=== PATIENT | female | born 1995 | race Caucasian/White ===

== ENCOUNTER 2023-09-22 17:38 | Outpatient (REF) | payer MEDICAID, SELFPAY ==
[2023-09-23 16:08] LABS: C. trachomatis RNA TMA NOT DETECTED (NOT DETECTED); N. gonorrhoeae RNA TMA NOT DETECTED (NOT DETECTED)
== END 2023-09-22 17:39 | disposition home or self-care (01) ==
LOC: HO.HHCLNP 17:38
PROVIDERS: Visit Provider Nurse Practitioner
DX: A64 Unspecified sexually transmitted disease (principal)
CPT/HCPCS: 36415; 87491; 87591

== ENCOUNTER 2023-09-24 09:21 | Outpatient (REF) | payer MEDICAID, SELFPAY ==
[2023-09-24 14:45] LABS: MANUAL DIFF FLAG NO
[2023-09-24 14:47] LABS: Basophils Absolute Auto 0.1 X10*3/uL (0.0-0.2); Basophils Percent Auto 0.5 % (0-2); Eosinophils Absolute Auto 0.1 X10*3/uL (0.0-0.4); Eosinophils Percent Auto 0.7 % (0-4); Hematocrit 36.4 % (37.0-47.0); Hemoglobin 11.5 g/dl (12.0-16.0); Imm Gran Abs Auto 0.04 X10*3/uL (0.00-0.03); Imm Gran Pct Auto 0.3 % (0.0-0.4); Lymphocytes Absolute Auto 1.4 X10*3/uL (1.2-4.9); Lymphocytes Percent Auto 10.3 % (20-40); Mean Corpuscular HGB Conc 31.6 g/dl (31.0-35.0); Mean Corpuscular Hemoglobin 23.9 pg (27.0-33.0); Mean Corpuscular Volume 75.5 fL (80.0-98.0); Mean Platelet Volume 9.6 fL (9.4-12.3); Monocytes Absolute Auto 0.8 X10*3/uL (0.1-1.2); Neutrophils Absolute Auto 10.8 x10*3/uL (2.0-8.3); Neutrophils Percent Auto 82.2 % (45-73); Platelet Count 299 X10*3/uL (160-400); Red Blood Count 4.82 X10*6/uL (4.20-5.50); Red Cell Distribution Width 16.5 % (11.0-16.0); White Blood Count 13.1 X10*3/uL (4.8-10.8)
[2023-09-24 14:54] LABS: Estimated Average Glucose 105 mg/dL; Hemoglobin A1c % 5.3 % (<6.0)
[2023-09-24 15:06] LABS: Alanine Aminotransferase 16 U/L (0-31); Alkaline Phosphatase 43 U/L (39-117); Anion Gap 8 (12-20); Aspartate Amino Transferase 22 U/L (5-31); Bilirubin Total 0.4 mg/dL (0.0-1.0); Blood Urea Nitrogen 13 mg/dL (9-16); Calcium 8.8 mg/dL (8.4-10.2); Carbon Dioxide 24 mmol/L (22-29); Chloride 108 mmol/L (96-108); Cholesterol 138 mg/dL (<200); Estimated Glomerular Filt Rate > 60; Glucose Random 81 mg/dL (60-115); HDL Cholesterol 58 mg/dL (>40); LDL Cholesterol Calculated 68 mg/dL (<100); Potassium 4.1 mmol/L (3.3-5.1); Sodium 136 mmol/L (135-145); Total Protein 7.2 g/dL (6.5-8.0); Triglycerides 60 mg/dL (<150)
[2023-09-24 16:04] LABS: CT PCR NOT DETECTED (Not Detect.); NG PCR NOT DETECTED (Not Detect.)
[2023-09-27 08:34] LABS: HBS Num1 94.72 mIU/mL (0-7.99); HBc Num1 0.07 S/CO (0.00-0.79); HBsAGNum1 0.31 S/CO (0.00-0.99); HIV AB/AG Nonreactive (Nonreactive); HIV Num 1 0.11 S/CO (0.00-0.99); Hepatitis B Core Antibody Nonreactive (Nonreactive); Hepatitis B Surface Antigen Negative (Negative); ~HepC Num1 0.09 S/CO (0.00-0.79); ~Hepatitis B Surface Antibody REACTIVE (Nonreactive); ~Hepatitis C Antibody Nonreactive (Nonreactive)
[2023-09-27 11:13] LABS: RPR Rapid Plasma Reagin NON-REACTIVE (NON-REACTIVE)
== END 2023-09-24 09:22 | disposition home or self-care (01) ==
LOC: HO.CHCLDS 09:21
PROVIDERS: Visit Provider Nurse Practitioner
DX: Z11.4 Encounter for screening for human immunodeficiency virus [HIV] (principal); A64 Unspecified sexually transmitted disease; E66.09 Other obesity due to excess calories; Z68.30 Body mass index [BMI] 30.0-30.9, adult; N93.9 Abnormal uterine and vaginal bleeding, unspecified; I10 Essential (primary) hypertension; Z20.2 Contact with and (suspected) exposure to infections with a predominantly sexual mode of transmission
CPT/HCPCS: 0353U; 80053; 80061; 83036; 85025; 86592; 86704; 86706; 86803; 87340; 87389

== ENCOUNTER 2023-12-10 16:17 | Outpatient (REF) | payer MEDICAID, SELFPAY ==
[2023-12-10 17:48] LABS: MANUAL DIFF FLAG NO
[2023-12-10 17:52] LABS: Basophils Absolute Auto 0.1 X10*3/uL (0.0-0.2); Basophils Percent Auto 1.1 % (0-2); Eosinophils Absolute Auto 0.1 X10*3/uL (0.0-0.4); Eosinophils Percent Auto 1.4 % (0-4); Hemoglobin 11.4 g/dl (12.0-16.0); Imm Gran Abs Auto 0.03 X10*3/uL (0.00-0.03); Imm Gran Pct Auto 0.3 % (0.0-0.4); Lymphocytes Absolute Auto 2.3 X10*3/uL (1.2-4.9); Lymphocytes Percent Auto 26.6 % (20-40); Mean Corpuscular HGB Conc 31.7 g/dl (31.0-35.0); Mean Corpuscular Hemoglobin 23.7 pg (27.0-33.0); Mean Corpuscular Volume 74.8 fL (80.0-98.0); Mean Platelet Volume 9.5 fL (9.4-12.3); Monocytes Absolute Auto 0.6 X10*3/uL (0.1-1.2); Monocytes Percent Auto 7.1 % (2-11); Neutrophils Absolute Auto 5.6 x10*3/uL (2.0-8.3); Neutrophils Percent Auto 63.5 % (45-73); Platelet Count 370 X10*3/uL (160-400); Red Blood Count 4.81 X10*6/uL (4.20-5.50); Red Cell Distribution Width 16.8 % (11.0-16.0); White Blood Count 8.8 X10*3/uL (4.8-10.8)
[2023-12-10 20:39] LABS: Thyroid Stimulating Hormone 1.14 uIU/mL (0.32-4.0)
== END 2023-12-10 16:18 | disposition home or self-care (01) ==
LOC: HO.HHCL 16:17
PROVIDERS: Visit Provider Nurse Practitioner Family
DX: N92.0 Excessive and frequent menstruation with regular cycle (principal)
CPT/HCPCS: 36415; 84443; 85025

== ENCOUNTER 2024-02-08 12:30 | Outpatient (REF) | payer MEDICAID, SELFPAY ==
[2024-02-10 22:09] LABS: TS Negative Control Passed; TS Panel A 1; TS Panel B 1; TS Positive Control Passed; TSpotTB Negative (Negative)
== END 2024-02-08 12:31 | disposition home or self-care (01) ==
LOC: HO.HHCL 12:30
PROVIDERS: Visit Provider Nurse Practitioner
DX: Z13.89 Encounter for screening for other disorder (principal)
CPT/HCPCS: 36415; 86481

== ENCOUNTER 2025-03-20 10:43 | Outpatient (REF) | payer MEDICAID, SELFPAY ==
--- OUTSIDE RECORDS SUMMARY | 2025-03-19 10:30 | XMS_ITS | Encounter Summary ---
Author Organization [employer] Address [address] [place] [address] 7 [place] [address] Care Team Providers Care Community Engagement Manager Name Role Phone Karen Huerta NP Primary Care Provider [phone] Reason for Referral * Consultation (Routine) - Authorized Specialty Diagnoses / Procedures Referred By Larisa enamorado Referred To Contact Orthopaedic Surgery Diagnoses Bilateral carpal tunnel syndrome Danuta Torres NP [address] [place] [address] Phone: tel: fax: [facility] [address] [place] [address] Phone: tel: Referral ID Status Reason Start Date Expiration Date Visits Requested Visits Authorized [id number] Authorized Specialty Services Required 03/20/2025 03/20/2026 6 6 Reason for Visit * Reason Comments sick visit Encounter Details Date Type Department Care Team (Late st Contact Info) Description 03/19/2025 10:30 AM EDT Office Visit [facility] [address] [place] [address] Danuta Torres NP [address] [place] [address] Bilateral carpal tunnel syndrome (Primary Dx); Pain in both knees, unspecified chronicity; Status post delivery; Pharyngitis, unspecified etiology Social History Tobacco Use Types Packs/Day Years Used Date Smoking Tobacco: Never Passive Smoke Exposure: Never Smokeless Tobacco: Never Tobacco Cessation:Counseling Given: Not Answered Alcohol Use Standard Drinks/Week Comments Never 0 (1 standard drink = 0.6 oz pur e alcohol) Alcohol Answer Date Recorded How often do you have a drink containing alcohol ? 0 12/09/2023 Average Number of Drinks Not on file 024 How often do you have six or more drinks on one occasion? 0 12/09/2023 Depression Answer Date Recorded Patient Health Questionnaire-9 Score 0 08/28/2024 Patient Health Questionnaire-9 Score 0 08/28/2024 Last PHQ-9: Questionnaire Data Not on file 0 08/28/2024 Housing Stability Answer Date Recorded What is your housing situation today? I have carolyne vasques 08/28/[address] you li ve. Do you have problems with any of the following? None of the above 08/28/2024 Food Insecurity Answer Date Recorded Within the past 12 months, y ou worried that your food would run out before you got money to buy more: Never True 09/22/2023 Within the past 12 months,th e food you bought just didn't last and you didn't have enough money to get more: Never True Transportation Answer Date Recorded In the past 12 months, has l ack of transportation kept you from medical appts, meetings, work or from getting things needed for daily living? No 09/22/2023 Utilities Answer Date Recorded In the past 12 months, has t he electric, gas, oil or water company threatened to shut off services in your home? No 09/22/2023 Depression Answer Date Recorded Patient Health Questionnaire-2 Score 0 08/28/2024 Internet Access Answer Date Recorded Internet Access Q1 No 08/28/2024 Internet Access Q2 I do not want or need it 08/2024 Comments Yes Sex and Gender Information Value Date Recorded Sex Assigned at Female 07/26/2023 2:35 PM EST Legal Sex Female 2:34 PM EDT Gender Identity Female 07/26/2023 2:35 PM EST Sexual Orientation Straight 07/26/2023 2: 35 PM EST documented as of this encounter Last Filed Vital Signs Vital Sign Reading Time Taken Comments Blood Pressure 122/80 03/19/2025 10:51 AM EDT Pulse 60 03/19/2025 10:51 AM EDT Temperature 36.3 C (97.4 F) 03/19/2025 10:51 AM EDT Respiratory Rate 15 03/19/2025 10:51 AM EDT Oxygen Saturation 99% 03/19/2025 10:51 AM EDT Inhaled Oxygen Concentration - - Weight 97 kg (213 lb 12.8 oz) 03/19/2025 10:51 A M EDT Height 175.3 cm (5' 9 ) 03/19/2025 10:51 AM EDT Body Mass Index 31.57 03/19/2025 10:51 AM EDT documented in this encounter Progress Notes * Danuta Torres NP - 03/19/2025 10:30 AM EDT Shelby Fletcher is a 29 y.o. female who presents to the office for Chief Complaint Patient presents with sick visit Problem List[1] Medical History[2] Allergies[3] Shelby Fletcher, 29-year-old female - Wrist pain started approximately one month prior to the visit - Initial symptoms began in the wrist area, progressing to pain in the rest of the hand and fingers - Numbness, tingling, and itching in both hands, with episodes of cold sensation and perceived poorcirculation - Symptoms worse in the morning upon waking, with difficulty opening hands - Used wrist braces as previously recommended, but no relief; braces made it harder to open hands - Reports swelling after section, with recurrence of swelling postoperatively - Knee pain reported - Denies cough, wheezing, shortness of breath, and fever - Reports redness in throat in the morning, but denies morning phlegm or postnasal drip - Mood reported as happy Review of Systems Constitutional: Negative for activity change and appetite change. Respiratory: Negative for apnea and chest tightness. Genitourinary: Negative for difficulty urinating and dyspareunia. Musculoskeletal: Positive for joint swelling and myalgias. BP 122/80 (BP Location: Left arm, Patient Position: Sitting, BP Cuff Size: Large adult) Pulse 60 Temp 97.4 ??F (36.3 ??C) (Oral) Resp 15 Ht 5' 9 (1.753 m) Wt 213 lb 12.8 oz (97 kg) SpO2 99% BMI 31.57 kg/m?? Physical Exam Vitals reviewed. Constitutional: Appearance: She is obese. HENT: Head: Normocephalic and atraumatic. Nose: Nose normal. Eyes: Conjunctiva/sclera: Conjunctivae normal. Cardiovascular: Rate and Rhythm: Normal rate and regular rhythm. Pulmonary: Effort: Pulmonary effort is normal. Breath sounds: Normal breath sounds. Musculoskeletal: Right wrist: Swelling present. No bony tenderness. Decreased range of motion. Left wrist: Swelling present. No bony tenderness. Decreased range of motion. Cervical back: Normal range of motion and neck supple. Comments: + tinnel + phalen Neurological: General: No focal deficit present. Mental Status: She is alert. - HEENT: Mild erythema observed in the throat. Results: Office Visit on 03/19/2025 Component Date Value Ref Range Status Rapid Strep A Screen 03/19/2025 Negative Negative, None Detected Final QC Media Lot # 03/19/2025 [id number] Final Lot# Expiration Date 03/19/2025 1,134,026 Final Assessment & Plan Bilateral carpal tunnel syndrome Orders: Referral to Orthopaedic Surgery; Future Pain in both knees, unspecified chronicity Status post delivery Orders: CBC auto differential; Future Sed Rate by Modified Westergren; Future C-reactive Protein; Future Pharyngitis, unspecified etiology Orders: POCT Rapid Strep A COTTO ID NOW Assessment & Plan Bilateral carpal tunnel syndrome: - Nerve pain and wrist inflammation consistent with carpal tunnel syndrome, likely related to and repetitive motions. Nerve compression at the level of the wrist. - Referred to orthopedist/hand specialist for further evaluation and management, including consideration of custom splinting or corticosteroid injection. Recommended wrist stretching exercises and limiting phone use. Advised to wear wrist braces at night and remove during the day for stretching. Status post delivery: - symptoms within expected range following section. No signs of excessive bleeding or infection at present. Anemia expected post-delivery and surgery. - Ordered blood count and inflammation markers to assess for infection or excessive blood loss. Advised to contact surgical team regarding postoperative symptoms. Instructed to seek care if abdominalpain worsens or signs of infection develop before follow-up. Pharyngitis, unspecified etiology: - Pharyngeal erythema without evidence of infection or strep throat on examination. Afebrile. - Performed throat swab for strep testing. Advised to use acetaminophen as needed and increase fluid intake. Instructed to wait for test results; antibiotics to be prescribed if strep test is positive. Prescription - Tylenol, as needed Appointments - Referral to orthopedist/hand specialist for evaluation of wrist symptoms Current Medications[4] Based on our discussion, I have outlined the following instructions for you: - Do wrist stretching exercises and try to use your phone less often. - Wear wrist braces while you sleep at night, and take them off during the day so you can do your wrist stretches. - You will have blood tests to check for infection or blood loss. - If you have any new or concerning symptoms after your surgery, contact your surgical team. - If your belly pain gets worse or you notice signs of infection (like fever, redness, swelling, orpus), get medical help right away. - A throat swab was done to check for strep throat. - You can take acetaminophen if you need it for pain, and make sure to drink plenty of fluids. - Wait for your throat test results. If the test shows strep throat, you will be given antibiotics. Next appointment(s): - Referral to orthopedist/hand specialist for evaluation of wrist symptoms Thank you again for your visit, and we look forward to supporting you in your journey to better health. This note was drafted using Ambient (AI) technology. The patient/patient's guardian has been informed and has consented to the use of this technology: Yes Visit Conducted in: Hungarian Translation by: Provided by [employer] Benefits Administrator Phone Service ID # [id number] [1] Patient Active Problem List Diagnosis Routine adult health maintenance Abnormal uterine bleeding (AUB) Class 1 obesity due to excess calories without serious comorbidity with body mass index (BMI) of 30.0 to 30.9 in adult STI (sexually transmitted infection) Menorrhagia with regular cycle Dysmenorrhea Viral upper respiratory tract infection Sore throat Less than 8 weeks gestation of Bilateral carpal tunnel syndrome Pain in both knees Status post delivery Pharyngitis [2] History reviewed. No pertinent past medical history. [3] No Known Allergies [4] Current Outpatient Medications: fluticasone (Flonase) 50 MCG/ACT nasal spray, Administer 1-2 sprays into each nostril Once per day.Shake gently. Before first use, prime pump. After use, clean tip and replace cap., Disp: 16 g, Rfl:2 documented in this encounter Miscellaneous Notes * Assessment & Plan Note - Danuta Torres NP - 03/19/2025 10:30 AM EDTAssociated Problem(s): Bilateral carpal tunnel syndrome Orders: Referral to Orthopaedic Surgery; Future * Assessment & Plan Note - Danuta Torres NP - 03/19/2025 10:30 AM EDTAssociated Problem(s): Pain in both knees * Assessment & Plan Note - Danuta Torres NP - 03/19/2025 10:30 AM EDTAssociated Problem(s): Status post delivery Orders: CBC auto differential; Future Sed Rate by Modified Westergren; Future C-reactive Protein; Future * Assessment & Plan Note - Danuta Torres NP - 03/19/2025 10:30 AM EDTAssociated Problem(s): Pharyngitis Orders: POCT Rapid Strep A COTTO ID NOW documented in this encounter Plan of Treatment Scheduled Orders Name Type Priority Associated Diagnoses Orde r Schedule C-reactive Protein Lab Routine Status post delivery Expected: 03/19/2025 (Approximate), Expires: 03/19/2026 Scheduled Referrals Name Type Priority Associated Diagnoses Order Schedule Referral to Orthopaedic Surgery Outpatient Referral Routine Bilateral carpal tunnel syndrome Expected: 03/19/2025 (Approximate), Expires: 03/19/2026 documented as of this encounter Procedures Procedure Name Priority Date/Time Associated Diagnosis Comments CBC WITH AUTO DIFFERENTIAL Routine 03/20/2025 11:14 AM EDT Status post delivery SED RATE BY MODIFIED WESTERGREN Routine 03/20/2025 11:14 AM EDT Status post delivery POC COTTO ID NOW STREP A Routine 03/19/2025 11:50 AM EDT Pharyngitis, unspecified etiology documented in this encounter Results * Sed Rate by Modified Westergren (03/20/2025 11:14 AM EDT) Erythrocyte Sedimentation Rate 13 0 - 20 MM/HR [facility] Comment:Patients with polycy themia and many hemoglobin abnormalitiesmay have depressed sed rates whereas patients with anemiamay have elevated sed rates. Blood Venous blood specimen / Unknown 03/20/2025 11:14 AM EDT 03/20/2025 11:14 AM EDT us Danuta Torres NP LAB BLOOD ORDERABLES Final Resul t [facility] [address] [place] [phone] * (ABNORMAL) CBC auto differential (03/20/2025 11:14 AM EDT) White Blood Count 6.9 4.8 - 10.8 X10*3/uL [facility] Red Blood Count 5.16 4.20 - 5.50 X10*6/uL [facility] Hemoglobin 13.2 12.0 - 16.0 g/dl [facility] Hematocrit 41.2 37.0 - 47.0 % [facility] Mean Corpuscular Volume 79.8(L) 80.0 - 98.0 fL [facility] Mean Corpuscular Hemoglobin 25.6(L) 27.0 - 33.0 pg [facility] Mean Corpuscular HGB Conc 32.0 31.0 - 35.0 g/dl [facility] Red Cell Distribution Width TNP 11.0 - 16.0 % [facility] Platelet Count 381 160 - 400 X10*3/uL [facility] Mean Platelet Volume 8.8(L) 9.4 - 12.3 fL [facility] Neutrophils Percent Auto 71.7 45 - 73 % [facility] Imm Gran Pct Auto 0.3 0.0 - 0.4 % [facility] Lymphocytes Percent Auto 19.5(L) 20 - 40 % [facility] Monocytes Percent Auto 4.9 2 - 11 % [facility] Eosinophils Percent Auto 2.6 0 - 4 % [facility] Basophils Percent Auto 1.0 0 - 2 % [facility] NRBC Pct Auto 0.0 0.0 - 0.2 /100WBC [facility] Neutrophils Absolute Auto 5.0 2.0 - 8.3 x10*3/uL [facility] Imm Gran Abs Auto 0.02 0.00 - 0.03 X10*3/uL [facility] Lymphocytes Absolute Auto 1.4 1.2 - 4.9 X10*3/uL [facility] Monocytes Absolute Auto 0.3 0.1 - 1.2 X10*3/uL [facility] Eosinophils Absolute Auto 0.2 0.0 - 0.4 X10*3/uL [facility] Basophils Absolute Auto 0.1 0.0 - 0.2 X10*3/uL [facility] NRBC Abs Auto 0.000 0.0 - 0.012 X10*3/uL [facility] Blood Venous blood specimen / Unknown 03/20/2025 11:14 AM EDT 03/20/2025 11:14 AM EDT us Danuta Torres TESTER/LIFT TRUCKER LAB BLOOD ORDERABLES Final Resul t [facility] [address] [place] [address] [phone] * POCT Rapid Strep A COTTO ID NOW (03/19/2025 11:50 AM EDT) Rapid Strep A Screen Negative Negative, None Detected QC Media Lot # [id number] Lot# Expiration Date [id number] Swab 03/19/2025 11:5 0 AM EDT Result [facility] Danuta Torres NP POINT OF CARE TEST ENTER/EDIT OR DERABLES Final Result documented in this encounter Visit Diagnoses Diagnosis Bilateral carpal tunnel syndrome- Primary Carpal tunnel syndrome Pain in both knees, unspecified chronicity Status post delivery delivery, without mention of indication, unspecified as to episode of care Pharyngitis, unspecified etiology documented in this encounter Additional Health Concerns Assessment Noted Time PHQ-9 Depression Total Score: 0 08/29/19 25 10:20 AM EST documented as of this encounter Care Teams Community Engagement Manager Relationship Specialty Start Date End Date Karen Huerta NP [address] [place] [id number] PCP - General Family Medicine 09/22/23 documented as of this encounter
[2025-03-20 11:16] LABS: MANUAL DIFF FLAG NO
[2025-03-20 11:46] LABS: Hematocrit 41.2 % (37.0-47.0); Hemoglobin 13.2 g/dl (12.0-16.0); Imm Gran Abs Auto 0.02 X10*3/uL (0.00-0.03); Imm Gran Pct Auto 0.3 % (0.0-0.4); Lymphocytes Absolute Auto 1.4 X10*3/uL (1.2-4.9); Mean Corpuscular HGB Conc 32.0 g/dl (31.0-35.0); Mean Corpuscular Hemoglobin 25.6 pg (27.0-33.0); Mean Corpuscular Volume 79.8 fL (80.0-98.0); NRBC Abs Auto 0.000 X10*3/uL (0.0-0.012); NRBC Pct Auto 0.0 /100WBC (0.0-0.2); Platelet Count 381 X10*3/uL (160-400); Red Blood Count 5.16 X10*6/uL (4.20-5.50); White Blood Count 6.9 X10*3/uL (4.8-10.8)
--- OUTSIDE RECORDS SUMMARY | 2025-03-20 13:13 | XMS_ITS | Clinical Summary ---
Author Organization [facility] Address [address] [place] [address] Care Team Providers Care Elementary Special Education Teacher Name Role Phone Unavailable Primary Care Provider Unavailabl e Social History Tobacco Use Types Packs/Day Years Used Date Smoking Tobacco: Never Assessed Comments Unknown Sex and Gender Information Value Date Recorded Sex Assigned at Not on file Legal Sex Female 4:36 AM EST Gender Identity Not on file Sexual Orientation Not on file Plan of Treatment Health Maintenance Due Date Last Done Comments DTaP,Tdap,and Td Vaccines (1 - Tdap) 2015 Hepatitis B Vaccines (1 of 3 - 19+ 3-dose series) 2015 Cervical Cancer Screening: P ap Smear 2017 Depression Screening 06/28/2024 COVID-19 Vaccine (1 - 2023-2 5 season) 2025 Influenza Vaccine (#1) 2025 RSV Immunization Adult Patie nts (1 - 1-dose 75+ series) 2071 HIB Vaccines Aged Out No longer eligi ble based on patient's age to complete this topic HPV Vaccines Aged Out No longer eligi ble based on patient's age to complete this topic Hepatitis A Vaccines Aged Out No long er eligible based on patient's age to complete this topic IPV Vaccines Aged Out No longer eligi ble based on patient's age to complete this topic MMR Vaccines Aged Out No longer eligi ble based on patient's age to complete this topic Meningococcal ACWY Vaccine Aged Out N o longer eligible based on patient's age to complete this topic Meningococcal B Vaccine Aged Out No l onger eligible based on patient's age to complete this topic Pneumococcal Vaccine: Pediat rics (0 to 5 Years) and At-Risk Patients (6 to 49 Years) Aged Out No longer eligible b ased on patient's age to complete this topic RSV Immunization Patients Un jeferson 20 months Aged Out No longer eligible b ased on patient's age to complete this topic Varicella Vaccines Aged Out No longer eligible based on patient's age to complete this topic
--- OUTSIDE RECORDS SUMMARY | 2025-03-20 13:13 | XMS_ITS | Encounter Summary ---
Author Organization [employer] Address [address] [place] [address] [address] [place] [address] Care Team Providers Care Automotive Mechanic Name Role Phone Karen Huerta NP Primary Care Provider [phone] Reason for Visit * Reason Onset Date Comments Chart Prep 03/16/2025 Encounter Details Date Type Department Care Team ([facility] st Contact Info) Description 03/16/2025 Telephone [facility] [address] [place] [address] Danuta Torres NP [address] [place] [address] Chart Prep Social History Tobacco Use Types Packs/Day Years Used Date Smoking Tobacco: Never Passive Smoke Exposure: Never Smokeless Tobacco: Never Alcohol Use Standard Drinks/Week Comments Never 0 [...] PM EST documented as of this encounter Miscellaneous Notes * Telephone Encounter - Ellen Hebert MA - 03/16/2025 10:52 AM EDT Chart Prep Labs: done Images: not applicable Referrals: not applicable Vaccines due: Covid, Flu, and HPV Screenings: not applicable Overdue care gaps: Oral health screening and Tobacco documented in this encounter Plan of Treatment Not on file documented as of this encounter Visit Diagnoses Not on filedocumented in this encounter Additional Health Concerns Assessment Noted Time PHQ-9 Depression Total Score: 0 08/29/19 25 10:20 AM EST documented as of this encounter Care Teams Automotive Mechanic Relationship Specialty Start Date End Date Karen Huerta NP [address] [place] [address] PCP - General Family Medicine 09/22/23 documented as of this encounter
--- OUTSIDE RECORDS SUMMARY | 2025-03-20 13:13 | XMS_ITS | Encounter Summary ---
Author Organization [employer] Address [address] [facility] [address] [place] [address] Care Team Providers Care Fitter Mechanic Name Role Phone Karen Huerta JOB Primary Care Provider [phone] Encounter Details Date Type Department Care Team ([facility] st Contact Info) Description 10/06/2024 Orders Only [facility] [address] [place] [address] Provider, MD Yaneth Social History Tobacco Use Types Packs/Day Years [...] PM EST documented as of this encounter Plan of Treatment Not on file documented as of this encounter Procedures Procedure Name Priority Date/Time Associated Diagnosis Comments HM PAP/HPV Routine 09/28/2024 10:11 AM EDT documented in this encounter Results * HM PAP/HPV (09/28/2024 10:11 AM EDT) us Historical Provider HEALTH MAINTENANCE Final Result documented in this encounter Visit Diagnoses Not on filedocumented in this encounter Additional Health Concerns Assessment Noted Time PHQ-9 Depression Total Score: 0 08/29/19 25 10:20 AM EST documented as of this encounter Care Teams Fitter Mechanic Relationship Specialty Start Date End Date Karen Huerta NP [address] [place] [id number] PCP - General Family Medicine 09/22/23 documented as of this encounter
--- OUTSIDE RECORDS SUMMARY | 2025-03-20 13:13 | XMS_ITS | Encounter Summary ---
Author Organization [employer] Address [address] [facility] 7[address] [place] [address] Care Team Providers Care Biomedical Engineer Name Role Phone Karen Huerta NP Primary Care Provider [phone] Reason for Visit * Reason Onset Date Comments Appointment Request 11/17/2023 Encounter Details Date Type Department Care Team ([facility] Contact Info) Description 11/17/2023 Telephone [facility] [address] [place], [place] [phone] Karen Huerta NP [address] [place] [address] Appointment Request Social History Tobacco Use Types Packs/Day Years Used Date Smoking Tobacco: Never Smokeless Tobacco: Never Alcohol Use Standard Drinks/Week Comments Never 0 (1 standard drink = 0.6 oz pur e alcohol) Depression Answer Date Recorded Patient Health Questionnaire-9 Score 0 09/22/2023 Patient Health Questionnaire-9 Score 0 09/22/2023 Last PHQ-9: Questionnaire Data Not on file 0 09/22/2023 Housing Stability Answer Date Recorded What is your housing situation today? I have carolyne vasques 09/22/[address] you li ve. Do you have problems with any of the following? I am not sure;None of the above 09/22/2023 Food Insecurity Answer Date Recorded Within the [...] Date Recorded Patient Health Questionnaire-2 Score 0 09/22/2023 Comments Unknown Sex and Gender Information Value Date Recorded Sex Assigned at Female 07/26/2023 2:35 PM EST Legal Sex Female 2:34 PM EDT Gender Identity Female 07/26/2023 2:35 PM EST Sexual Orientation Straight 07/26/2023 2: 35 PM EST documented as of this encounter Miscellaneous Notes * Telephone Encounter - Ron Barrett - 11/17/2023 2:31 PM EDT Tc from patient calling to reschedule follow-up appt from 10/26 documented in this encounter Plan of Treatment Not on file documented as of this encounter Visit Diagnoses Not on filedocumented in this encounter Additional Health Concerns Assessment Noted Time PHQ-9 Depression Total Score: 0 09/22/19 2:30 PM EDT documented as of this encounter Care Teams Biomedical Engineer Relationship Specialty Start Date End Date Karen Huerta NP [address] [place] [id number] PCP - General Family Medicine 09/22/23 documented as of this encounter
--- OUTSIDE RECORDS SUMMARY | 2025-03-20 13:14 | XMS_ITS | Clinical Summary ---
Author Organization [employer] Address [address] [place] [address] [address] [place] [address] Care Team Providers Care Environmental Services Specialist Name Role Phone Karen Huerta JOB Primary Care Provider [phone] Allergies No known active allergies Medications fluticasone (Flonase) 50 MCG/ACT nasal sprayIndications :Viral upper respiratory tract infection Administer 1-2 sprays into each nostril Once per day. Shake gently. Before first use, prime pump. After use, clean tip and replace cap. 16 g 2 5 08/29/19 26 Active Active Problems Problem Noted Date Diagnosed Date Bilateral carpal tunnel syndrome 03/19/2025 Assessment & Plan (03/19/2025 12:52 PM EDT): Orders: Referral to Orthopaedic Surgery; Future Pain in both knees 03/19/2025 Assessment & Plan (03/19/2025 12:52 PM EDT): Status post delivery 03/19/2025 Assessment & Plan (03/19/2025 12:52 PM EDT): Orders: CBC auto differential; Future Sed Rate by Modified Westergren; Future C-reactive Protein; Future Pharyngitis 03/19/2025 Assessment & Plan (03/19/2025 12:52 PM EDT): Orders: POCT Rapid Strep A COTTO ID NOW Viral upper respiratory tract infection 08/29/19 25 Sore throat 08/28/2024 Less than 8 weeks gestation of 025 Menorrhagia with regular cycle 12/10/2023 Assessment & Plan (12/17/2023 9:15 AM EDT): Cbc ordered Trial ibuprofen during menses Increase iron rich foods monitor Dysmenorrhea 12/10/2023 Routine adult health maintenance 12/09/2023 Assessment & Plan (12/09/2023 10:30 PM EDT): -age appropriate screening and immunizations up to date (STI screening) -low cardiovascular risk -mental health screening negative -healthy social behaviors encouraged -anticipatory guidance reviewed: diet, exercise Abnormal uterine bleeding (AUB) 12/09/2023 Assessment & Plan (12/09/2023 10:26 PM EDT): -labs ordered to assess for resulting anemia today -will discuss further at next visit and consider full work up pending patient's report Class 1 obesity due to exces s calories without serious comorbidity with body mass index (BMI) of 30.0 to 30.9 in adult 12/09/2023 Assessment & Plan (12/09/2023 10:28 PM EDT): -Healthy diet and exercise teaching completed: Eat a variety of fruit and vegetables, whole grains such as whole-wheat flour, bulgur (cracked wheat), oatmeal, and brown rice. Intake protein from beans, nuts, fish, and lean meats. Eat low-fat or fat- free dairy products. Limit highly processed foods such as hot dogs, sandwich meat, etc. Engage in minimum of 150 min of moderate intensity exercise weekly -las ordered to evaluate kidney's, liver, A1c, and lipid levels STI (sexually transmitted infection) 12/09/2023 Assessment & Plan (12/09/2023 10:34 PM EDT): -patient agreeable to testing -vaginal swab obtained to test for BV/ yeast, -will treat as necessary pending lab results Comments Yes Encounters Date Type Department Care Team Description 03/19/2025 10:30 AM EDT Office Visit [address] [address] Danuta Torres NP Bilateral carpal tunnel syndrome (Primary Dx); Pain in both knees, unspecified chronicity; Status post delivery; Pharyngitis, unspecified etiology 03/19/2025 Travel 03/16/[address] [address] Danuta Torres NP Chart Prep 03/14/[address] [address] Karen Huerta NP Nurse Triage 03/06/[address] [address] Karen Huerta NP Nurse Triage 02/14/2025 10:30 AM EDT Office Visit [address] [address] Karen Huerta NP Paresthesia of both hands (Primary Dx); Pain in both hands; , unspecified gestational age 0802/14/[address] [address] Karen Huerta NP Durable Medical Equipment 02/14/2025 Travel 02/13/[address] [address] Nilo Crawford [place] CHARTPREP 02/13/[address] [address] Karen Huerta NP Nurse Triage from Last 3 Months Immunizations Immunization Administration Dates Next Due Tdap 03/17/2022 Family History Medical History Relation Name Comments Hypertension Father Relation Name Status Comments Father Social History Tobacco Use Types Packs/Day Years [...] Orientation Straight 07/26/2023 2: 35 PM EST Last Filed Vital Signs Vital Sign Reading [...] Mass Index 31.57 03/19/2025 10:51 AM EDT Plan of Treatment Health Maintenance Due Date Last Done Comments Family Planning (PISQ) 2011 HPV Vaccines (1 - 3-dose series) 2011 COVID-19 Vaccine (3 - 2024-2 6 season) 2025 05/06/2021, 04/11/2021 Influenza Vaccine (#1) 2025 Alcohol/Substance Use Screening 08/28/2025 08/28/2024 Depression Screening 08/28/2025 08/28/2024, 08/28/2024 SDOH Screening 08/28/2025 08/28/2024 Disability Screening 02/14/2026 02/14/2025 Tobacco Screening 03/19/2026 03/19/2025 Pap Smear 09/29/2027 09/28/2024 Lipid Panel 09/23/2028 09/24/2023 DTaP/Tdap/Td Vaccines (3 - T d or Tdap) 01/25/2035 01/25/2025, 03/17/2022 Zoster Vaccines (1 of 2) 2046 RSV Patients and Patients Aged 60 years or older (1 - 1-dose 75+ series) 2071 HIV Screening Completed 09/24/2023 Hepatitis C Screening Completed 09/24/2023 HIB Vaccines Aged Out No longer eligi ble based on patient's age to complete this topic Hepatitis A Vaccines Aged Out No long er eligible based on patient's age to complete this topic Hepatitis B Vaccines Discontinued IPV Vaccines Aged Out No longer eligi ble based on patient's age to complete this topic Meningococcal B Vaccine Aged Out No l onger eligible based on patient's age to complete this topic Meningococcal Vaccine Aged Out No eliu herberth eligible based on patient's age to complete this topic Pneumococcal Vaccine: Pediatrics (0 to 5 Years) and At-Risk Patients (6 to 49) Years Aged Out No longer eligible based on patient's age to complete this topic RSV under 20 months Aged Out No longe r eligible based on patient's age to complete this topic Rotavirus Vaccines Aged Out No longer eligible based on patient's age to complete this topic Procedures Procedure Name Priority Date/Time Associated Diagnosis Comments SED RATE BY MODIFIED WESTERGREN Routine 03/20/2025 11:14 AM EDT Status post delivery CBC WITH AUTO DIFFERENTIAL Routine 03/20/2025 11:14 AM EDT Status post delivery POC COTTO ID NOW STREP A Routine 03/19/2025 11:50 AM EDT Pharyngitis, unspecified etiology HM PAP/HPV Routine 09/28/2024 10:11 AM EDT HEPATITIS C AB W/REFL TO HCV RNA, QN, PCR Routine 09/24/2023 9:27 AM EDT STI (sexually transmitted infection) HIV 1/2 ANTIGEN/ANTIBODY, FOURTH GENERATION W/RFL Routine 09/24/2023 9:27 AM EDT STI (sexually transmitted infection) LIPID PANEL, STANDARD Routine 09/24/2023 9:27 AM EDT Class 1 obesity due to excess calories without serious comorbidity with body mass index (BMI) of 30.0 to 30.9 in adult from Last 3 Months or Most Recently Relevant to Health Maintenance Results * (ABNORMAL) CBC auto differential (03/20/2025 11:14 AM EDT) White Blood Count 6.9 4.8 - 10.8 X10*3/uL [facility] Red Blood Count 5.16 4.20 - 5.50 X10*6/uL [facility] Hemoglobin 13.2 12.0 - 16.0 g/dl [facility] Hematocrit 41.2 37.0 - 47.0 % [facility] Mean Corpuscular Volume 79.8(L) 80.0 - 98.0 fL [facility] Mean Corpuscular Hemoglobin 25.6(L) 27.0 - 33.0 pg [facility] Mean Corpuscular HGB Conc 32.0 31.0 - 35.0 g/dl [facility] Red Cell Distribution Width TNP 11.0 - 16.0 % [facility] Platelet Count 381 160 - 400 X10*3/uL [facility] Mean Platelet Volume 8.8(L) 9.4 - 12.3 fL [facility] Neutrophils Percent Auto 71.7 45 - 73 % [facility] Imm Gran Pct Auto 0.3 0.0 - 0.4 % [facility] Lymphocytes Percent Auto 19.5(L) 20 - 40 % [facility] Monocytes Percent Auto 4.9 2 - 11 % [facility] Eosinophils Percent Auto 2.6 0 - 4 % [facility] Basophils Percent Auto 1.0 0 - 2 % [facility] NRBC Pct Auto 0.0 0.0 - 0.2 /100WBC [facility] Neutrophils Absolute Auto 5.0 2.0 - 8.3 x10*3/uL [facility] Imm Gran Abs Auto 0.02 0.00 - 0.03 X10*3/uL [facility] Lymphocytes Absolute Auto 1.4 1.2 - 4.9 X10*3/uL [facility] Monocytes Absolute Auto 0.3 0.1 - 1.2 X10*3/uL [facility] Eosinophils Absolute Auto 0.2 0.0 - 0.4 X10*3/uL [facility] Basophils Absolute Auto 0.1 0.0 - 0.2 X10*3/uL [facility] NRBC Abs Auto 0.000 0.0 - 0.012 X10*3/uL [facility] Blood Venous blood specimen / Unknown 03/20/2025 11:14 AM EDT 03/20/2025 11:14 AM EDT us Danuta Torres COOK 3 PASTRY LAB BLOOD ORDERABLES Final Resul t [facility] [address] [place] [phone] * Sed Rate by Modified Román (03/20/2025 11:14 AM EDT) Erythrocyte Sedimentation Rate 13 0 - 20 MM/HR [facility] Comment:Patients with polycy themia and many hemoglobin abnormalitiesmay have depressed sed rates whereas patients with anemiamay have elevated sed rates. Blood Venous blood specimen / Unknown 03/20/2025 11:14 AM EDT 03/20/2025 11:14 AM EDT Danuta Torres NP LAB BLOOD ORDERABLES Final Resul t Performing Organization Address [facility] Co de Phone Number [facility] [address] [place] [phone] * POCT Rapid Strep A COTTO ID NOW (03/19/2025 11:50 AM EDT) [facility] Rapid Strep A Screen Negative Negative, None Detected QC Media Lot # [id number] Lot# Expiration Date [id number] Swab 03/19/2025 11:5 0 AM EDT Danuta Torres NP POINT OF CARE TEST ENTER/EDIT OR DERABLES Final Result * HM PAP/HPV (09/28/2024 10:11 AM EDT) Historical Provider HEALTH MAINTENANCE Final Result * Hepatitis C Antibody with Reflex to HCV, RNA, Quantitative, Real-Time PCR (09/24/2023 9:27 AM EDT) [facility] Hepatitis C Antibody Nonreactive Nonreactive [facility] Comment:Antibodies to HCV no t detected; does not exclude early acuteHCV infection. Blood Venous blood specimen / Unknown 09/24/2023 9:27 AM EDT 09/24/2023 2:41 PM EDT Karen Huerta COOK 3 PASTRY LAB BLOOD ORDERABLES Final Resu lt Performing Organization Address [facility]/ZIP Co de Phone Number [facility] [address] [place] [phone] * HIV-1/2 Antigen and Antibodies, Fourth Generation, with Reflexes (09/24/2023 9:27 AM EDT) HIV AB/AG Nonreactive Nonreactive [facility] Comment:HIV-1 p24 Ag and/or HIV-1/HIV-2 Ab not detected.A test result that is nonreactive does not exclude thepossibility of exposure to or infection with HIV-1 and/orHIV-2. Nonreactive results in this assay for individualswith prior exposure to HIV-1 and/or HIV-2 may be due toantigen and antibody levels that are below the limit ofdetection of this assay.The [facility] HIV Ag/Ab Combo assay result andsupplemental assay results should be interpreted inconjunction with the patient's clinical presentation,history and other laboratory results. If the results areinconsistent with clinical evidence, additional testing issuggested to confirm the result. Blood Venous blood specimen / Unknown 09/24/2023 9:27 AM EDT 09/24/2023 2:41 PM EDT Karen Huerta COOK 3 PASTRY LAB BLOOD ORDERABLES Final Resu lt [facility] [address], [place] [phone] * Lipid Panel, Standard (09/24/2023 9:27 AM EDT) Triglycerides 60 <150 mg/dL [facility] Comment:Desirable Triglyceri de: less than 150 mg/dLBorderline High Triglyceride 150-199 mg/dLHigh Triglyceride: 200-499 mg/dLVery High Triglyceride: greater than or equal to 5OO mg/dL Cholesterol 138 <200 mg/dL [facility] Comment:Desirable Cholestero l: less than 200 mg/dLBorderline High Cholesterol: 200-239 mg/dLHigh Cholesterol: greater than 239 mg/dL LDL Cholesterol Calculated 68 <100 mg/dL [facility] Comment:Desirable LDL: less than 100 mg/dLNear Optimal/Above Optimal LDL: 110- 129 mg/dLBorderline High LDL: 130-159 mg/dLHigh LDL: 160-189 mg/dLVery High LDL: greater than or equal to 190 mg/dL HDL Cholesterol 58 >40 mg/dL [facility] Comment:Desirable HDL: great er than 40 mg/dL Note: This HDL assay may give artificially low results in patients with liver disease. Blood Venous blood specimen / Unknown 09/24/2023 9:27 AM EDT 09/24/2023 2:41 PM EDT us Karen Huerta NP LAB BLOOD ORDERABLES Final Resu lt [facility] [address] [place] [phone] from Last 3 Months or Most Recently Relevant to Health Maintenance Insurance [employer] Care Teams Environmental Services Specialist Relationship Specialty Start Date End Date Karen Huerta NP [address] [place] [phone] PCP - General Family Medicine 09/22/23
--- OUTSIDE RECORDS SUMMARY | 2025-03-20 13:14 | XMS_ITS | Encounter Summary ---
Author Organization [employer] Address [address] [place] [address] Care Team Providers Care Design And Sales Consultant Name Role Phone Karen Huerta JOB Primary Care Provider [phone] Encounter Details Date Type Department Care Team (Latest Contact Info) Description 03/19/2025 Travel Social History Tobacco Use Types Packs/Day Years [...] documented as of this encounter Care Teams Design And Sales Consultant Relationship Specialty Start Date End Date Karen Huerta NP [address] [place] [phone] PCP - General Family Medicine 09/22/23 documented as of this encounter
== END 2025-03-20 10:44 | disposition home or self-care (01) ==
LOC: HO.LAB 10:43
PROVIDERS: PCP Nurse Practitioner; Visit Provider Nurse Practitioner Family
DX: Z98.891 History of uterine scar from previous surgery (principal)
CPT/HCPCS: 36415; 85025; 85652; 86140